=== PATIENT | female | born 1975 | race Caucasian/White ===

== ENCOUNTER 2020-06-04 11:06 | Inpatient (IN) | payer MEDICAID ==
[~2020-06-04] VITALS: Ht 175.3 cm; Wt 107.0 kg
--- NOTE | 2020-06-04 11:48 | NUR ---
pt is a 45f who complains of abd pain x 24 hours. denies, n/v/d. the pain is intermittent and worsening today. she states she has not been to the dr for 15 years. friend at bedside. labs drawn. continuous sp02 and cycling vitals. call light within reach.
--- NOTE | 2020-06-04 11:49 | NUR ---
pt also states she is unable to give urine sample at this time.
[2020-06-04] MEDS ORDERED: SODIUM CHLORIDE FLUSH 10ML SYR IVF ONE (12:00)
[2020-06-04 12:10] LABS: BASOPHILS % (AUTO) 0 % (0-1); EOSINOPHILS % (AUTO) 0 % (1-7); LYMPHOCYTES % (AUTO) 8 % (22-44); MEAN CORPUSCULAR HEMOGLOBIN 29.5 pg (27.0-34.8); MEAN CORPUSCULAR HGB CONC 33.6 g/dL (32.4-35.8); MEAN PLATELET VOLUME 8.1 fL (7.4-10.4); MONOCYTES % (AUTO) 6 % (2-9); NEUTROPHILS % (AUTO) 87 % (42-75); PLATELET COUNT 231 x10^3/uL (130-400); RED BLOOD COUNT 4.83 x10^6/uL (3.82-5.3); RED CELL DISTRIBUTION WIDTH 13.7 % (9.6-15.2)
[2020-06-04 12:11] LABS: MD NO
[2020-06-04 12:22] LABS: ALBUMIN 3.4 g/dL (3.4-5.0); ANION GAP 7 mmol/L (5-15); CALCIUM 8.7 mg/dL (8.5-10.1); CHLORIDE 102 mmol/L (98-107)
--- NOTE | 2020-06-04 12:22 | NUR ---
TASK RN: PT AMBULATED TO THE BR W/ A STEADY GAIT. URINE CUP PROVIDED FOR SAMPLE.
--- NOTE | 2020-06-04 12:26 | NUR ---
TASK RN: PT RETURNED TO ROOM W/O INCIDENT, URINE COLLECTED AND SENT TO LAB. PT REQ PAIN MEDS, ERP UPDATED. PT RESTING ON [employer] W/ CALL LIGHT IN REACH, AWAITING CT.
[2020-06-04 12:29] LABS: ALANINE AMINOTRANSFERASE 20 U/L (12-78); ALKALINE PHOSPHATASE 72 U/L (45-117); BILIRUBIN,TOTAL 1.7 mg/dL (0.2-1.0); TOTAL PROTEIN 7.4 g/dL (6.4-8.2)
[2020-06-04] MEDS ORDERED: PAMIDRONATE 3 MG/ML, 10ML IV ONE (12:30)
--- NOTE | 2020-06-04 12:43 | NUR ---
TASK RN: PT TO CT.
[2020-06-04 12:46] LABS: MICROSCOPIC AUTO
[2020-06-04] MEDS ORDERED: OMNIPAQUE 350 MG/ML, 100ML BOTTLE ONE (12:51)
[2020-06-04] MEDS ORDERED: ONDANSETRON 2MG/ML, 2ML ONE ×2 (12:52→16:50)
[2020-06-04] MEDS ORDERED: MORPHINE SULFATE 4 MG/ML, 1ML ONE (12:52)
--- NOTE | 2020-06-04 12:59 | NUR ---
pt back from ct, medicated per emar. call light in place. no additional needs at this time.
[2020-06-04] MEDS ORDERED: MORPHINE SULFATE 4 MG/ML, 1ML IVPush PRN (13:00)
[2020-06-04] MEDS ORDERED: PAMIDRONATE IV ONE (13:00)
[2020-06-04] MEDS ORDERED: ONDANSETRON 2MG/ML, 2ML IVPush ONE (13:00)
[2020-06-04] MEDS ORDERED: SODIUM CHLORIDE 0.9% IV ONE (13:00)
--- NOTE | 2020-06-04 13:21 | NUR ---
pt states the medications are helping. she is resting comfortably watching tv. call light within reach. continuous spo2 and cycling vitals.
--- NOTE | 2020-06-04 13:47 | NUR ---
PT SLEEPING, RESP EVEN AND UNLABORED. CALL LIGHT WITHIN REACH.
[2020-06-04] MEDS ORDERED: SODIUM CHLORIDE 0.9% 1,000ML IVBOLUS ONE (14:30)
[2020-06-04] MEDS ORDERED: PIPERACILLIN/TAZO/PMX 3.375GM 50 ML IV ONE (14:30)
[2020-06-04] MEDS ORDERED: PIPERACILLIN/TAZO/PMX 3.375GM 50 ML ONE (14:40)
--- NOTE | 2020-06-04 15:10 | NUR ---
Blood cultures drawn and antibiotics hung. Friend at bedside. Pt teary and upset that she has to go to surgery. Call light within reach.
--- NOTE | 2020-06-04 15:26 | NUR ---
REPORT TO GENNA LOPEZ IN THE OR.
[2020-06-04] MEDS ORDERED: CHLORHEXIDINE 15 ML UDC MM ONE (15:30)
[2020-06-04] MEDS ORDERED: LACTATED RINGERS 1,000 ML IV SCH (15:30)
--- NOTE | 2020-06-04 16:07 | NUR ---
FATHERS INFO: MELANI NICKERSON [phone]
[2020-06-04] MEDS ORDERED: MIDAZOLAM 1 MG/ML, 2ML ONE (16:50)
[2020-06-04] MEDS ORDERED: PROPOFOL 10 MG/ML, 50ML ONE (16:50)
[2020-06-04] MEDS ORDERED: PROPOFOL 10 MG/ML, 20ML ONE (16:50)
[2020-06-04] MEDS ORDERED: ROCURONIUM 10MG/ML,5ML ONE (16:50)
[2020-06-04] MEDS ORDERED: FENTANYL PF 250 MCG/5ML ONE (16:50)
[2020-06-04] MEDS ORDERED: SUCCINYLCHOLINE 20 MG/ML, 10ML ONE (16:50)
[2020-06-04] MEDS ORDERED: MEPERIDINE/PF 25MG/0.5ML IVPush PRN (17:30)
[2020-06-04] MEDS ORDERED: ONDANSETRON 2MG/ML, 2ML IVPush PRN (17:30)
[2020-06-04] MEDS ORDERED: OXYcodone 5 MG/5 ML ORAL.SOL UDC PO PRN (17:30)
[2020-06-04] MEDS ORDERED: EPHEDRINE 50 MG/ML, 1ML IM PRN (17:30)
[2020-06-04] MEDS ORDERED: EPHEDRINE 50 MG/ML, 1ML IVPush PRN (17:30)
[2020-06-04] MEDS ORDERED: morphine SULFATE 10 MG/ML, 1ML IVPush PRN (17:30)
[2020-06-04] MEDS ORDERED: DIPHENHYDRAMINE 50 MG/ML, 1ML IVPush PRN (17:30)
[2020-06-04] MEDS ORDERED: PROMETHAZINE 25 MG/ML, 1ML IVPush PRN (17:30)
[2020-06-04] MEDS ORDERED: LABETALOL 5MG/ML, 20ML IV PRN (17:30)
[2020-06-04] MEDS ORDERED: DIAZEPAM 5 MG/ML, 2ML IVPush PRN (17:30)
[2020-06-04] MEDS ORDERED: HYDROmorphone 1 MG/ML, 1ML INJ ONE ×3 (18:19→18:52)
[2020-06-04] MEDS ORDERED: FENTANYL PF 100 MCG/2ML ONE ×2 (18:19→18:44)
[2020-06-04] MEDS: FENTANYL PF 100 MCG/2ML IV PRN ×3 (18:20→18:30)
[2020-06-04] MEDS ORDERED: OXYcodone 5 MG/5 ML ORAL.SOL UDC ONE (18:20)
[2020-06-04] MEDS: HYDROmorphone 1 MG/ML, 1ML INJ IVPush PRN ×5 (18:36→19:01)
[2020-06-04] MEDS ORDERED: DIAZEPAM 5 MG/ML, 2ML ONE (18:48)
[2020-06-04] MEDS ORDERED: LORazepam 1MG TABLET PO PRN (20:30)
[2020-06-04] MEDS ORDERED: morphine SULFATE 10 MG/ML, 1ML IV PRN (20:30)
[2020-06-04] MEDS ORDERED: LORazepam 2 MG/ML, 1ML IV PRN (20:30)
[2020-06-04] MEDS ORDERED: ONDANSETRON 2MG/ML, 2ML IV PRN (20:30)
[2020-06-04 21:32] VITALS: BP 112/84
[2020-06-04] MEDS: POTASSIUM CHLORIDE 20 MEQ in D5%-0.45% NACL 1,000 ML IV SCH (21:53)
[2020-06-04] MEDS: PIPERACILLIN/TAZO/PMX 3.375GM 50 ML IV SCH (22:00)
[2020-06-05 00:04] VITALS: BP 120/77
[2020-06-05] MEDS: HYDROmorphone 2 MG/ML, 1ML IVPush PRN ×7 (00:21→20:06)
[2020-06-05] MEDS: PIPERACILLIN/TAZO/PMX 3.375GM 50 ML IV SCH ×4 (03:37→22:13)
[2020-06-05 04:21] VITALS: BP 111/74
[2020-06-05 05:42] LABS: BASOPHILS % (AUTO) 1 % (0-1); EOSINOPHILS % (AUTO) 0 % (1-7); LYMPHOCYTES % (AUTO) 8 % (22-44); MEAN CORPUSCULAR HEMOGLOBIN 29.7 pg (27.0-34.8); MEAN CORPUSCULAR HGB CONC 33.3 g/dL (32.4-35.8); MEAN PLATELET VOLUME 7.9 fL (7.4-10.4); MONOCYTES % (AUTO) 5 % (2-9); NEUTROPHILS % (AUTO) 86 % (42-75); PLATELET COUNT 229 x10^3/uL (130-400); RED BLOOD COUNT 4.32 x10^6/uL (3.82-5.3); RED CELL DISTRIBUTION WIDTH 13.8 % (9.6-15.2)
[2020-06-05 05:43] LABS: MD NO
[2020-06-05 05:52] LABS: ALBUMIN 2.6 g/dL (3.4-5.0); ANION GAP 5 mmol/L (5-15); CALCIUM 7.8 mg/dL (8.5-10.1); CHLORIDE 106 mmol/L (98-107)
[2020-06-05 05:56] LABS: ALANINE AMINOTRANSFERASE 14 U/L (12-78); ALKALINE PHOSPHATASE 70 U/L (45-117); BILIRUBIN,TOTAL 1.2 mg/dL (0.2-1.0); CREATININE 0.75 mg/dL (0.55-1.02)
[2020-06-05] MEDS: ENOXAPARIN 40 MG/0.4 ML SQ SCH (06:00)
[2020-06-05] MEDS: POTASSIUM CHLORIDE 20 MEQ in D5%-0.45% NACL 1,000 ML IV SCH ×3 (06:08→22:14)
[2020-06-05 08:40] VITALS: BP 115/74
[2020-06-05 13:20] VITALS: BP 128/86
[2020-06-05 19:55] VITALS: BP 123/82
[2020-06-06] MEDS: HYDROmorphone 2 MG/ML, 1ML IVPush PRN ×5 (02:09→19:35)
[2020-06-06 02:33] VITALS: BP 123/84
[2020-06-06] MEDS: PIPERACILLIN/TAZO/PMX 3.375GM 50 ML IV SCH ×4 (04:08→23:05)
[2020-06-06] MEDS: METOCLOPRAMIDE 5 MG/ML, 2ML IV SCH ×4 (06:19→21:54)
[2020-06-06] MEDS: POTASSIUM CHLORIDE 20 MEQ in D5%-0.45% NACL 1,000 ML IV SCH ×2 (06:23→16:04)
[2020-06-06] MEDS: ENOXAPARIN 40 MG/0.4 ML SQ SCH (06:25)
[2020-06-06 07:14] VITALS: BP 114/78
[2020-06-06 08:43] LABS: BASOPHILS % (AUTO) 0 % (0-1); EOSINOPHILS % (AUTO) 0 % (1-7); LYMPHOCYTES % (AUTO) 7 % (22-44); MEAN CORPUSCULAR HEMOGLOBIN 29.6 pg (27.0-34.8); MEAN CORPUSCULAR HGB CONC 32.9 g/dL (32.4-35.8); MEAN PLATELET VOLUME 7.7 fL (7.4-10.4); MONOCYTES % (AUTO) 5 % (2-9); NEUTROPHILS % (AUTO) 87 % (42-75); PLATELET COUNT 282 x10^3/uL (130-400); RED BLOOD COUNT 4.86 x10^6/uL (3.82-5.3); RED CELL DISTRIBUTION WIDTH 13.9 % (9.6-15.2)
[2020-06-06 08:44] LABS: MD NO
[2020-06-06 14:16] VITALS: BP 132/90
[2020-06-06 21:49] VITALS: BP 137/90
[2020-06-07] MEDS: POTASSIUM CHLORIDE 20 MEQ in D5%-0.45% NACL 1,000 ML IV SCH ×3 (01:11→21:14)
[2020-06-07] MEDS: HYDROmorphone 2 MG/ML, 1ML IVPush PRN ×3 (01:16→19:25)
[2020-06-07 01:27] VITALS: BP 137/90
[2020-06-07] MEDS: PIPERACILLIN/TAZO/PMX 3.375GM 50 ML IV SCH ×4 (05:09→23:03)
[2020-06-07] MEDS: ENOXAPARIN 40 MG/0.4 ML SQ SCH (06:03)
[2020-06-07] MEDS: METOCLOPRAMIDE 5 MG/ML, 2ML IV SCH ×4 (06:03→21:14)
[2020-06-07 07:44] VITALS: BP 120/76
[2020-06-07 08:09] LABS: BASOPHILS % (AUTO) 0 % (0-1); EOSINOPHILS % (AUTO) 1 % (1-7); LYMPHOCYTES % (AUTO) 15 % (22-44); MEAN CORPUSCULAR HEMOGLOBIN 29.6 pg (27.0-34.8); MEAN CORPUSCULAR HGB CONC 33.2 g/dL (32.4-35.8); MEAN PLATELET VOLUME 7.8 fL (7.4-10.4); MONOCYTES % (AUTO) 8 % (2-9); NEUTROPHILS % (AUTO) 77 % (42-75); PLATELET COUNT 340 x10^3/uL (130-400); RED BLOOD COUNT 4.69 x10^6/uL (3.82-5.3); RED CELL DISTRIBUTION WIDTH 13.7 % (9.6-15.2)
[2020-06-07 08:13] LABS: MD NO
[2020-06-07 13:21] VITALS: BP 142/90
[2020-06-07 19:26] VITALS: BP 131/82
[2020-06-08 01:08] VITALS: BP 109/74
[2020-06-08] MEDS: HYDROmorphone 2 MG/ML, 1ML IVPush PRN ×3 (04:02→19:07)
[2020-06-08] MEDS: PIPERACILLIN/TAZO/PMX 3.375GM 50 ML IV SCH ×3 (05:43→16:37)
[2020-06-08] MEDS: METOCLOPRAMIDE 5 MG/ML, 2ML IV SCH ×4 (05:44→21:37)
[2020-06-08] MEDS: ENOXAPARIN 40 MG/0.4 ML SQ SCH (05:45)
[2020-06-08] MEDS: POTASSIUM CHLORIDE 20 MEQ in D5%-0.45% NACL 1,000 ML IV SCH ×2 (07:13→16:29)
[2020-06-08 07:57] VITALS: BP 132/84
[2020-06-08 09:29] LABS: BASOPHILS % (AUTO) 1 % (0-1); EOSINOPHILS % (AUTO) 3 % (1-7); LYMPHOCYTES % (AUTO) 21 % (22-44); MEAN CORPUSCULAR HEMOGLOBIN 29.7 pg (27.0-34.8); MEAN CORPUSCULAR HGB CONC 33.1 g/dL (32.4-35.8); MEAN PLATELET VOLUME 7.1 fL (7.4-10.4); MONOCYTES % (AUTO) 9 % (2-9); NEUTROPHILS % (AUTO) 67 % (42-75); PLATELET COUNT 316 x10^3/uL (130-400); RED BLOOD COUNT 4.32 x10^6/uL (3.82-5.3); RED CELL DISTRIBUTION WIDTH 13.5 % (9.6-15.2)
[2020-06-08 09:36] LABS: MD NO
[2020-06-08 13:59] VITALS: BP 127/78
[2020-06-08 19:16] VITALS: BP 125/78
[2020-06-09] MEDS: PIPERACILLIN/TAZO/PMX 3.375GM 50 ML IV SCH ×5 (00:17→22:53)
[2020-06-09 01:27] VITALS: BP 135/85
[2020-06-09] MEDS: HYDROmorphone 2 MG/ML, 1ML IVPush PRN ×5 (01:41→20:02)
[2020-06-09] MEDS: POTASSIUM CHLORIDE 20 MEQ in D5%-0.45% NACL 1,000 ML IV SCH ×3 (03:09→19:37)
[2020-06-09] MEDS: METOCLOPRAMIDE 5 MG/ML, 2ML IV SCH ×4 (05:57→22:03)
[2020-06-09] MEDS: ENOXAPARIN 40 MG/0.4 ML SQ SCH (05:57)
[2020-06-09 06:21] LABS: BASOPHILS % (AUTO) 1 % (0-1); EOSINOPHILS % (AUTO) 5 % (1-7); LYMPHOCYTES % (AUTO) 23 % (22-44); MEAN CORPUSCULAR HEMOGLOBIN 29.2 pg (27.0-34.8); MEAN CORPUSCULAR HGB CONC 32.8 g/dL (32.4-35.8); MEAN PLATELET VOLUME 6.9 fL (7.4-10.4); MONOCYTES % (AUTO) 10 % (2-9); NEUTROPHILS % (AUTO) 62 % (42-75); PLATELET COUNT 304 x10^3/uL (130-400); RED BLOOD COUNT 4.16 x10^6/uL (3.82-5.3); RED CELL DISTRIBUTION WIDTH 13.7 % (9.6-15.2)
[2020-06-09 06:22] LABS: MD NO
[2020-06-09 06:33] LABS: INTERNATIONAL NORMALIZED RATIO 1.07 (0.93-1.1); PROTHROMBIN TIME 11.4 Seconds (9.6-11.5)
[2020-06-09 07:35] VITALS: BP 133/83
[2020-06-09 14:40] VITALS: BP 132/77
[2020-06-09 19:41] VITALS: BP 123/78
[2020-06-09] MEDS ORDERED: OXYcodone/APAP 5/325MG TABLET PO PRN (22:30)
[2020-06-10 02:23] VITALS: BP 137/80
[2020-06-10] MEDS: POTASSIUM CHLORIDE 20 MEQ in D5%-0.45% NACL 1,000 ML IV SCH (03:54)
[2020-06-10] MEDS: HYDROmorphone 2 MG/ML, 1ML IVPush PRN (04:05)
[2020-06-10 04:56] LABS: BASOPHILS % (AUTO) 1 % (0-1); EOSINOPHILS % (AUTO) 4 % (1-7); LYMPHOCYTES % (AUTO) 27 % (22-44); MEAN CORPUSCULAR HEMOGLOBIN 29.3 pg (27.0-34.8); MEAN CORPUSCULAR HGB CONC 33.2 g/dL (32.4-35.8); MEAN PLATELET VOLUME 7.2 fL (7.4-10.4); MONOCYTES % (AUTO) 10 % (2-9); NEUTROPHILS % (AUTO) 59 % (42-75); PLATELET COUNT 295 x10^3/uL (130-400); RED BLOOD COUNT 4.13 x10^6/uL (3.82-5.3); RED CELL DISTRIBUTION WIDTH 13.7 % (9.6-15.2)
[2020-06-10 05:04] LABS: MD NO
[2020-06-10] MEDS: PIPERACILLIN/TAZO/PMX 3.375GM 50 ML IV SCH (05:41)
[2020-06-10] MEDS: METOCLOPRAMIDE 5 MG/ML, 2ML IV SCH (05:52)
[2020-06-10] MEDS: ENOXAPARIN 40 MG/0.4 ML SQ SCH (05:52)
[2020-06-10 07:13] VITALS: BP 130/82
[2020-06-10] MEDS ORDERED: HYDR-1067 PO (09:50)
== END 2020-06-10 11:00 | disposition home or self-care (01) | DRG 329 ==
LOC: ED 12:35 → ORIP 15:27 → 4NE 19:57 → DCLOUNGE 06-10 10:54
PROVIDERS: ADMIT Surgery; ATTEND Surgery
PROC: 0D1N0Z4 Bypass Sigmoid Colon to Cutaneous, Open Approach (ICD-10-PCS; 2020-06-04)
PROC: 0DTN0ZZ Resection of Sigmoid Colon, Open Approach (ICD-10-PCS; principal; 2020-06-04 16:30)
DX: K57.20 Diverticulitis of large intestine with perforation and abscess without bleeding (principal); K35.32 Acute appendicitis with perforation, localized peritonitis, and gangrene, without abscess; N39.0 Urinary tract infection, site not specified; E66.9 Obesity, unspecified; D72.825 Bandemia; N85.2 Hypertrophy of uterus; N73.9 Female pelvic inflammatory disease, unspecified; K76.89 Other specified diseases of liver; Z20.822 Contact with and (suspected) exposure to COVID-19; Z87.891 Personal history of nicotine dependence; Z97.5 Presence of (intrauterine) contraceptive device; Z68.34 Body mass index [BMI] 34.0-34.9, adult
CPT/HCPCS: 36415; 74177; 80053; 81001; 83605; 83690; 84703; 85014; 85018; 85025; 85610; 87040; 87070; 87075; 87086; 87205; 87635; 88307; 96374; 96375; 99285; G0378; J1170; J1650; J2250; J2405; J2543; J2704; J3010; J3360; J3480; Q9967; J0330; J2060; J2270; J2765; J7030

== ENCOUNTER 2020-06-12 16:48 | Inpatient (IN) | payer MEDICAID ==
[~2020-06-12] VITALS: Ht 175.3 cm; Wt 89.5 kg
[~2020-06-12 16:48] MED LIST: HYDR-1067 PO
[2020-06-12] MEDS ORDERED: ONDANSETRON 2MG/ML, 2ML IVPush ONE (17:00)
[2020-06-12] MEDS ORDERED: HYDROmorphone 2 MG/ML, 1ML ONE (17:07)
[2020-06-12] MEDS ORDERED: ONDANSETRON 2MG/ML, 2ML ONE (17:07)
[2020-06-12] MEDS ORDERED: SODIUM CHLORIDE FLUSH 10ML SYR IVF ONE (17:30)
[2020-06-12] MEDS ORDERED: SODIUM CHLORIDE 0.9% 1,000ML IVBOLUS ONE (17:30)
[2020-06-12] MEDS: HYDROmorphone 2 MG/ML, 1ML IVPush PRN ×2 (17:30→18:40)
--- NOTE | 2020-06-12 17:34 | NUR ---
PT BIB BY DAD VIA POV. PER PT SHE GOT A NEW OSTOMY FOR DIVERTICULITIS, DC FROM THIS FACILITY 06/10, NOW HAS C/O PAIN FROM SURGICAL SITE. PT RESTING IN [facility], MONITORING IN PLACE, PT TEARFUL, PER PT PAIN 01/14, DR. RODRIGUEZ AT , [facility].
[2020-06-12 17:54] LABS: BASOPHILS % (AUTO) 0 % (0-1); EOSINOPHILS % (AUTO) 2 % (1-7); LYMPHOCYTES % (AUTO) 22 % (22-44); MEAN CORPUSCULAR HEMOGLOBIN 29.6 pg (27.0-34.8); MEAN CORPUSCULAR HGB CONC 33.3 g/dL (32.4-35.8); MEAN PLATELET VOLUME 7.1 fL (7.4-10.4); MONOCYTES % (AUTO) 8 % (2-9); NEUTROPHILS % (AUTO) 68 % (42-75); PLATELET COUNT 418 x10^3/uL (130-400); RED BLOOD COUNT 4.56 x10^6/uL (3.82-5.3); RED CELL DISTRIBUTION WIDTH 14.2 % (9.6-15.2)
[2020-06-12 17:57] LABS: MD NO
[2020-06-12 18:03] LABS: ALBUMIN 3.1 g/dL (3.4-5.0); ANION GAP 7 mmol/L (5-15); CALCIUM 8.9 mg/dL (8.5-10.1); CHLORIDE 107 mmol/L (98-107)
[2020-06-12 18:06] LABS: ALANINE AMINOTRANSFERASE 64 U/L (12-78); ALKALINE PHOSPHATASE 74 U/L (45-117); BILIRUBIN,TOTAL 0.4 mg/dL (0.2-1.0); CREATININE 0.96 mg/dL (0.55-1.02); TOTAL PROTEIN 6.8 g/dL (6.4-8.2)
[2020-06-12] MEDS ORDERED: LORazepam 2 MG/ML, 1ML IV ONE (18:30)
[2020-06-12] MEDS ORDERED: OMNIPAQUE 350 MG/ML, 100ML BOTTLE ONE (18:30)
--- NOTE | 2020-06-12 19:17 | NUR ---
TASK RN: DR RODRIGUEZ AT BS AT THIS TIME.
--- NOTE | 2020-06-12 19:18 | NUR ---
TASK RN: PT VSS AND UPDATED IN EMR.
[2020-06-12] MEDS ORDERED: LORazepam 2 MG/ML, 1ML ONE (19:29)
[2020-06-12] MEDS ORDERED: ONDANSETRON 2MG/ML, 2ML IVPush PRN (20:00)
[2020-06-12] MEDS ORDERED: LABETALOL 5MG/ML, 20ML IVPush PRN (20:00)
[2020-06-12] MEDS ORDERED: METOCLOPRAMIDE 5 MG/ML, 2ML IVPush PRN (20:00)
[2020-06-12 20:58] VITALS: BP 138/87
[2020-06-12] MEDS: SODIUM CHLORIDE 0.9% 1,000 ML IV SCH (21:21)
[2020-06-13 00:55] VITALS: BP 133/91
[2020-06-13 04:55] LABS: BASOPHILS % (AUTO) 1 % (0-1); EOSINOPHILS % (AUTO) 3 % (1-7); LYMPHOCYTES % (AUTO) 22 % (22-44); MEAN CORPUSCULAR HEMOGLOBIN 29.5 pg (27.0-34.8); MEAN CORPUSCULAR HGB CONC 33.4 g/dL (32.4-35.8); MONOCYTES % (AUTO) 10 % (2-9); NEUTROPHILS % (AUTO) 64 % (42-75); PLATELET COUNT 343 x10^3/uL (130-400); RED CELL DISTRIBUTION WIDTH 14.3 % (9.6-15.2)
[2020-06-13 04:56] LABS: MD NO
[2020-06-13] MEDS: morphine SULFATE 10 MG/ML, 1ML IVPush PRN ×4 (04:56→22:52)
[2020-06-13] MEDS: SODIUM CHLORIDE 0.9% 1,000 ML IV SCH (04:57)
[2020-06-13 05:04] LABS: ANION GAP 5 mmol/L (5-15); CALCIUM 8.1 mg/dL (8.5-10.1); CHLORIDE 108 mmol/L (98-107); CREATININE 0.71 mg/dL (0.55-1.02)
[2020-06-13 05:23] LABS: MICROSCOPIC NOT IND
[2020-06-13 07:28] VITALS: BP 138/88
[2020-06-13] MEDS: NICOTINE 14MG/24 HR PATCH.TD24 TD SCH (08:20)
[2020-06-13] MEDS: LACTATED RINGERS 1,000 ML IV SCH ×2 (13:00→22:54)
[2020-06-13 19:46] VITALS: BP 147/88
[2020-06-14 01:24] VITALS: BP 138/88
[2020-06-14 04:48] LABS: BASOPHILS % (AUTO) 1 % (0-1); EOSINOPHILS % (AUTO) 1 % (1-7); LYMPHOCYTES % (AUTO) 21 % (22-44); MEAN CORPUSCULAR HEMOGLOBIN 29.2 pg (27.0-34.8); MEAN CORPUSCULAR HGB CONC 33.3 g/dL (32.4-35.8); MONOCYTES % (AUTO) 9 % (2-9); NEUTROPHILS % (AUTO) 69 % (42-75); PLATELET COUNT 310 x10^3/uL (130-400); RED CELL DISTRIBUTION WIDTH 13.7 % (9.6-15.2)
[2020-06-14 04:53] LABS: MD NO
[2020-06-14 04:59] LABS: CHLORIDE 105 mmol/L (98-107)
[2020-06-14 05:03] LABS: ANION GAP 7 mmol/L (5-15); CALCIUM 8.2 mg/dL (8.5-10.1); CREATININE 0.66 mg/dL (0.55-1.02)
[2020-06-14 07:20] VITALS: BP 151/93
[2020-06-14] MEDS ORDERED: MAGNESIUM HYDROXIDE 8%, 30ML UDC PO PRN (08:00)
[2020-06-14] MEDS: METOCLOPRAMIDE 5 MG/ML, 2ML IVPush SCH ×4 (08:49→22:11)
[2020-06-14] MEDS: NICOTINE 14MG/24 HR PATCH.TD24 TD SCH (08:50)
[2020-06-14] MEDS: LISINOPRIL 20 MG TABLET PO SCH (10:26)
[2020-06-14] MEDS ORDERED: LACTATED RINGERS 1,000 ML IV SCH (13:00)
[2020-06-14 14:10] VITALS: BP 131/86
[2020-06-14 19:09] VITALS: BP 116/68
[2020-06-14 22:22] VITALS: BP 124/85
[2020-06-15 04:55] LABS: BASOPHILS % (AUTO) 1 % (0-1); EOSINOPHILS % (AUTO) 1 % (1-7); LYMPHOCYTES % (AUTO) 21 % (22-44); MEAN CORPUSCULAR HEMOGLOBIN 29.7 pg (27.0-34.8); MEAN CORPUSCULAR HGB CONC 33.6 g/dL (32.4-35.8); MEAN PLATELET VOLUME 7.2 fL (7.4-10.4); MONOCYTES % (AUTO) 11 % (2-9); NEUTROPHILS % (AUTO) 67 % (42-75); PLATELET COUNT 335 x10^3/uL (130-400); RED BLOOD COUNT 4.74 x10^6/uL (3.82-5.3); RED CELL DISTRIBUTION WIDTH 13.9 % (9.6-15.2)
[2020-06-15 04:59] LABS: MD NO
[2020-06-15 05:09] LABS: ANION GAP 7 mmol/L (5-15); CALCIUM 8.6 mg/dL (8.5-10.1); CHLORIDE 105 mmol/L (98-107); CREATININE 0.75 mg/dL (0.55-1.02)
[2020-06-15] MEDS: METOCLOPRAMIDE 5 MG/ML, 2ML IVPush SCH ×2 (05:28→11:04)
[2020-06-15 08:30] VITALS: BP 116/78
[2020-06-15] MEDS: NICOTINE 14MG/24 HR PATCH.TD24 TD SCH (09:04)
[2020-06-15] MEDS: LISINOPRIL 20 MG TABLET PO SCH (09:04)
[2020-06-15] MEDS ORDERED: MAGN400O7 PO (09:15)
[2020-06-15] MEDS ORDERED: METO10TA82 PO (09:15)
[2020-06-15] MEDS ORDERED: POLY17PO5 PO (09:15)
[2020-06-15 11:05] VITALS: BP 126/76
== END 2020-06-15 11:30 | disposition home or self-care (01) | DRG 394 ==
LOC: ED 17:42 → EDIP 19:32 → 4NE 20:49 → DCLOUNGE 06-15 11:27
PROVIDERS: ADMIT Family Medicine; ATTEND Family Medicine
DX: K91.89 Other postprocedural complications and disorders of digestive system (principal); K56.0 Paralytic ileus; I10 Essential (primary) hypertension; N71.1 Chronic inflammatory disease of uterus; K52.9 Noninfective gastroenteritis and colitis, unspecified; Z93.3 Colostomy status; Z79.899 Other long term (current) drug therapy
CPT/HCPCS: 36415; 74177; 80048; 80053; 81003; 83690; 85025; 96374; 96375; 96376; 99285; G0378; J1170; J2405; Q9967; J2060; J2270; J2765; J7030; J7120

== ENCOUNTER 2020-09-13 20:09 | Emergency (ER) | payer MEDICAID ==
[~2020-09-13] VITALS: Ht 175.3 cm; Wt 92.9 kg
[~2020-09-13 20:09] MED LIST changes: -HYDR-1067 PO; +HYDR-2214 PO; +MAGN400O7 PO; +METO10TA82 PO; +POLY17PO5 PO
--- NOTE | 2020-09-13 20:30 | NUR ---
PT STATES NOSE BLEEDING SINCE YESTERDAY AFTERNOON BUT STOPPED FOR A COUPLE HOURS THIS EVENING AND THEN STARTED UP AGIAN. PT DENIES LIGHTHEADED OR DIZZINESS. PT'S SKIN IS PINK AND INTACT. ERP AT BEDSIDE
[2020-09-13] MEDS ORDERED: OXYMETAZOLINE NASAL SPRAY 0.05%,30ML ONE (20:34)
[2020-09-13] MEDS ORDERED: OXYMETAZOLINE NASAL SPRAY 0.05%, 15ML NAS ONE (21:00)
[2020-09-13 22:15] VITALS: BP 127/91
== END 2020-09-13 22:58 ==
LOC: ED 21:24
DX: R04.0 Epistaxis (principal); R00.0 Tachycardia, unspecified
CPT/HCPCS: 99282